=== PATIENT | female | born 1960 | race Caucasian/White ===

== ENCOUNTER 2016-10-26 17:05 | Emergency (ER) | payer OTHER ==
[2016-10-26] MEDS ORDERED: ONDANSETRON 4 MG/2ML 2 ML VIAL ONE (18:14)
[2016-10-26] MEDS ORDERED: SODIUM CHLORIDE 0.9% 1,000 ML ONE ×2 (18:14→19:01)
[2016-10-26] MEDS ORDERED: MORPHINE SULFATE 4 MG/ML SYRINGE ONE (18:14)
[2016-10-26 18:42] LABS: ABSOLUTE NEUTROPHIL COUNT 10.8 K/mm3 (1.8-7.7); BASO % 0.2 % (0.2-1.0); HEMATOCRIT 52.6 % (37.0-47.0); HEMOGLOBIN 17.3 gm/l (12.0-16.0); IMM NEUT% 0.2 % (0-1); LYMPH # 0.6 (1.0-4.8); LYMPH % 4.5 % (15-45); MEAN CELL VOLUME 88.3 fl (81.0-99.0); MEAN CORPUSCULAR HGB CONC 32.9 g/dl (33.0-37.0); MEAN PLATELET VOLUME 10.7 fl (7.4-10.4); MONO # 0.7 (0.0-0.8); MONO % 5.4 % (4-12); NEUT % 89.7 % (43-75); PLATELET COUNT 210 K/mm3 (130-400); RED CELL DISTRIBUTION WIDTH 13.2 % (11.5-14.5)
[2016-10-26 18:45] LABS: ALBUMIN 5.4 gm/dL (3.5-5.7)
[2016-10-26 19:03] LABS: ALB/GLOB RATIO 1.1 (>1.0); CALCIUM 10.9 mg/dL (8.6-10.3)
--- NOTE | 2016-10-26 20:20 | RAD ---
ABDOMEN 2 VIEWS W PA CHEST HISTORY: Pain with vomiting. COMPARISONS: None. FINDINGS: Supine and upright views of the abdomen and a single view chest were obtained demonstrating air within nondilated large and small bowel throughout the abdomen. No suggested free intraperitoneal air is identified. The heart size is appropriate. There is mild bilateral diffuse interstitial prominence seen. IMPRESSION: 1. A nonspecific abdominal bowel gas pattern. No evidence of free intraperitoneal air is visualized. 2. Bilateral diffuse interstitial prominence with considerations including atypical infection, fibrosis or mild pulmonary edema.
[2016-10-26 20:22] LABS: SPECIFIC GRAVITY 1.015 (1.001-1.030); URINE BILIRUBIN NEGATIVE (NEGATIVE); URINE BLOOD 2+ (NEGATIVE); URINE GLUCOSE (UA) NEGATIVE (NEGATIVE); URINE LEUKOCYTE ESTERASE TRACE (NEGATIVE); URINE NITRITE NEGATIVE (NEGATIVE); URINE PROTEIN 1+ (NEGATIVE); URINE UROBILINOGEN NORMAL (0-1 mg/dl)
[2016-10-26 20:23] LABS: URINE APPEARANCE SL CLOUDY; URINE COLOR YELLOW
[2016-10-26 20:31] LABS: URINE EPITHELIAL CELLS 0-3 /hpf
[2016-10-26 20:32] LABS: URINE AMORPHOUS SEDIMENT FEW; URINE BACTERIA 1+; URINE CASTS >10 /lpf
== END 2016-10-26 21:47 | disposition home or self-care (01) ==
LOC: ED 17:05
DX: A08.4 Viral intestinal infection, unspecified (principal); E86.0 Dehydration; G47.30 Sleep apnea, unspecified; J98.4 Other disorders of lung
CPT/HCPCS: 83605; 83690; 85025; 87086; 80053; 81001; 74022; 96375; 99284; 96374; 96361 ×2; 99283; J2270; J2405; J7030 ×2